=== PATIENT | female | born 1985 | race Caucasian/White ===

== ENCOUNTER 2016-02-20 13:24 | Emergency (ER) | payer MEDICAID ==
[2016-02-20] MEDS ORDERED: ONDANSETRON 4 MG VIAL ONE (14:34)
[2016-02-20] MEDS ORDERED: DILAUDID 1 MG/ML AMP ONE (14:35)
== END 2016-02-20 16:55 | disposition home or self-care (01) ==
LOC: ER 13:24
CPT/HCPCS: 36415; 74176; 76830; 80053; 81001; 83690; 84703; 85025; 96374; 96375